=== PATIENT | female | born 1955 | race Caucasian/White ===

== ENCOUNTER 2020-04-24 11:18 | Inpatient (IN) | payer OTHER, SELFPAY ==
[~2020-04-24] VITALS: Ht 162.6 cm; Wt 85.0 kg
[~2020-04-24 11:18] MED LIST: CEPH500 PO; HYDACE5 PO
[2020-04-24 11:58] LABS: BASOPHILS ABSOLUTE AUTO 0.05 K/mm3 (0.00-0.23); BASOPHILS PERCENT AUTO 1 % (0-2); EOSINOPHILS ABSOLUTE AUTO 0.23 K/mm3 (0.00-0.68); EOSINOPHILS PERCENT AUTO 3 % (0-6); Hematocrit 38.9 % (33.0-51.0); Hemoglobin 13.4 g/dL (11.5-16.0); IMMATURE GRAN ABSOLUTE AUTO 0.01 K/mm3 (0.00-0.10); IMMATURE GRAN PERCENT AUTO 0 % (0-1); LYMPHOCYTES ABSOLUTE AUTO 2.53 K/mm3 (0.84-5.20); LYMPHOCYTES PERCENT AUTO 38 % (21-46); MONOCYTES ABSOLUTE AUTO 0.68 K/mm3 (0.16-1.47); MONOCYTES PERCENT AUTO 10 % (4-13); Mean Corpuscular HGB 31.7 pg (26.0-34.0); Mean Corpuscular HGB Conc 34.4 g/dL (31.5-36.5); Mean Corpuscular Volume 92 fL (80-100); Mean Platelet Volume 9.5 fL (9.1-12.4); NEUTROPHILS ABSOLUTE AUTO 3.21 K/mm3 (1.96-9.15); NEUTROPHILS PERCENT AUTO 48 % (41-73); Platelet Count 227 K/mm3 (150-400); RDW Coefficient Variation 12.3 % (11.7-14.2); RDW Standard Deviation 41.6 fL (35.1-46.3); Red Blood Cell Count 4.23 M/mm3 (3.80-5.20); White Blood Cell Count 6.71 K/mm3 (4.00-11.30)
[2020-04-24 12:13] LABS: Alanine Aminotransfer (ALT/SGP 50 U/L (12-78); Albumin, Blood 3.6 g/dL (3.4-5.0); Albumin/Globulin Ratio 0.8 (0.8-1.8); Alk Phos 99 U/L (50-136); Anion Gap 7 mmol/L (6-16); Aspartate Aminotrans (AST/SGOT 36 U/L (12-37); Bilirubin, Total 0.7 mg/dL (0.1-1.0); Blood Urea Nitrogen 12 mg/dL (8-24); Bun/Creatinine Ratio 16.6 (12.0-20.0); CO2, Blood 26 mmol/L (21-32); Calcium, Blood 9.5 mg/dL (8.5-10.1); Chloride, Blood 106 mmol/L (98-108); Creatinine, Blood 0.72 mg/dL (0.40-1.00); Globulin, Blood 4.6 g/dL (2.2-4.0); Glomerular Filtration Rate >60 (60-); Glucose, Blood 113 mg/dL (70-99); Potassium, Blood 4.3 mmol/L (3.5-5.5); Sodium, Blood 139 mmol/L (136-145); Total Protein, Blood 8.2 g/dL (6.4-8.2); Troponin I <0.015 ng/mL (0.000-0.040)
[2020-04-24] MEDS ORDERED: Prozac40 MG PO (13:25)
[2020-04-24] MEDS ORDERED: DYAZIDE 37.5-21 EACH PO (13:26)
[2020-04-24] MEDS ORDERED: ATOR40TA PO (13:26)
[2020-04-24] MEDS ORDERED: LEVOTHYROXINE112 MC2 PO (13:27)
[2020-04-24] MEDS ORDERED: CARVEDILOL25 M1 PO (13:27)
[2020-04-24] MEDS ORDERED: KLOR-CON 1010 ME1 PO (13:27)
[2020-04-24] MEDS ORDERED: PRILOSEC OTC20 MG PO (18:01)
--- NOTE | 2020-04-24 19:30 | NUR ---
Shift Summary Received report from Jossie NAVA-RN. Patient arrived to unit approx 1645 via w/c. A/Ox4, independent in room. Denies chest discomfort, orthopnea, numbness/tingling, nausea, diarrhea. Tele: SR 70's. Does not appear to be short of breath while up in room. Patient scheduled for stress test tomorrow. SCD's in place. No acute changes. Report handed to oncoming RN.
--- NOTE | 2020-04-24 21:48 | NUR ---
ASSUMPTION OF CARE. AOX3, INDEPENDENT, LUNGS CLEAR. HR SINUS PER TELE. DENIES ANY CARDIAC SYMPTOMS AT THIS TIME. STATES SHE FEELS FINE. SHE WAS NOT UNDERSTANDING WHAT SHE WAS TOLD ABOUT A BBB ON HER HEART OR ABNORMALITY AND WHAT THAT MEANS. SHE WAS ALSO FRIGHTEN WHEN HER PCP TOLD HER THEY COULD NOT TELL HER IF SHE IS HAVING A HEART ATTACK OR NOT. SO I EXPLAINED TO HER WHAT THINGS MEANT WHICH HELPED HER FEEL MORE COMFORTABLE AND HOPEFULLY WILL BRING DOWN HER ANXIETY AND BLOOD PRESSURE. DENIES ANY OTHER NEEDS AT THIS TIME. CALL LIGHT IS IN REACH.
--- NOTE | 2020-04-25 05:25 | NUR ---
SHIFT SUMMARY: AOX3, INDEPENDENT. TELEMETRY REPORTED SEVERAL EVENTS OF RANDOM PVC THEN A FLIP INTO ST DEPRESSION, THEN ANOTHER RANDOM PVC AND FLIP BACK TO NORMAL ST WAVE. SHE DID THIS SEVERAL TIMES EACH SHE WAS ASYMPTOMATIC. HOSPIALIST WAS CALLED AFTER FIRST EVENT AND WAS NOTIFIED. VS HAVE REMAINED STABLE THIS SHIFT. SHE SLEPT WELL OTHER THEN BEING AWAKENED. TELEMETRY IS STILL IN PLACE. GOOD APPETITE. NPO AFTER MIDNIGHT. PLAN IS STRESS TEST IN AM. CALL LIGHT REMAINS IN REACH.
--- NOTE | 2020-04-25 08:00 | NUR ---
pt sitting on the side of the bed awake a/ox3, having one day stress test, states she feels fine, no chest pain, sob, pressure, pleasant and coopertive with care, follows commands well, lungs are clear t/o, resp even and unlabored, no cough noted, hrr, tele in place running sr with bbb per tele, they state the t wave flips, qrs narrows, and bbb disapears occ, no edema noted, ppp+2, cap refill <3sec, vs stable, afebrile, iv site is clear and patent, btx4, abd flat soft nontender, voids without diff, skin c/w/d, maew, jude call light in reach.
--- NOTE | 2020-04-25 17:03 | NUR ---
NPO DR. SNYDER CONSULTED. PLANS FOR ANGIOGRAM TOMORROW AND 04/26. PATIENT TO BE NPO AFTER MIDNIGHT TONIGHT. DR. GILLIS NOTIFIED.
--- NOTE | 2020-04-25 18:32 | NUR ---
Shift Summary Assumed care approx. 1245. A/Ox4. Up in room independently. Calls appropriately for needs. Patient to be NPO after midnight for angiogram tomorrow. Will report to oncoming RN. Otherwise, no changes this shift.
--- NOTE | 2020-04-26 04:04 | NUR ---
SHIFT SUMMARY A/O, ABLE TO MAKE NEEDS KNOWN. COOPERATIVE WITH CARE. CALLS AND ANSWERS QUESTIONS APPROPRIATELY. NO C/O PAIN/DISCOMFORT. HAD SHOWER; NEW ORDERS PER ON-CALL PROVIDER, OK TO REMOVE TELE FOR SHOWER. NPO AFTER MIDNIGHT FOR ANGIO IN AM. APPEARED TO REST MUCH OF THE NIGHT. INDEPENDENT IN ROOM. NO ACUTE CHANGES NOTED OVERNIGHT. BED REMAINED IN LOWEST POSITION. CALL LIGHT AND BELONGINGS WITHIN REACH. CONTINUE WITH CURRENT PLAN OF CARE. REPORT TO ONCOMING RN.
--- NOTE | 2020-04-26 09:50 | NUR ---
PT TAKEN DOWN TO DOOR FRAME ASSEMBLER MACHINE BY DOOR FRAME ASSEMBLER MACHINE NURSE VIA WHEELCHAIR. PT IS BEING PLACED IN ROOM PCU 8 AFTER ANGIO. PT HAD A SMALL SIP OF WATER WITH HER PO CARDIAC MEDS THIS AM, OTHER THAN THIS PT HAS REMAINED NPO SINCE MIDNIGHT. CARLIN ALREADY SAW PT THIS AM BEFORE SHE LEFT FOR PROCEDURE. PT BELONGINGS WILL BE WALKED DOWN TO THE PT'S NEW ROOM.
--- NOTE | 2020-04-26 11:14 | NUR ---
RECEIVED REPORT FROM TALA BRADLEY. PT CONTINUES IN FOOD SAFETY SPECIALIST. WILL ASSUME CARE OF PT UPON ARRIVAL TO PCU UNIT.
[2020-04-26] MEDS ORDERED: Isosorbide Mono30 MG PO (16:35)
[2020-04-26] MEDS ORDERED: ASPI81CH PO (16:35)
--- NOTE | 2020-04-26 18:00 | NUR ---
PT DISCHARGED HOME IN NAD. TR BAND REMOVED, R RADIAL SITE FOUND TO BE WNL, CLEAR DRESSING APPLIED, ARMBOARD IN PLACE. DISCHARGE INSTRUCTIONS PROVIDED, PT V/U. PT AMBULATES INDEPENDENTLY FROM PCU TO HER RIDE.
== END 2020-04-26 17:49 | disposition home or self-care (01) | DRG 287 ==
LOC: ER 11:18 → ERHOLD 11:19 → MEDS 11:19 → PCU 04-26 12:08
PROVIDERS: Physician Assistant; ADMIT Internal Medicine
PROC: 4A023N7 Measurement of Cardiac Sampling and Pressure, Left Heart, Percutaneous Approach (ICD-10-PCS; principal; 2020-04-26)
PROC: B2111ZZ Fluoroscopy of Multiple Coronary Arteries using Low Osmolar Contrast (ICD-10-PCS; 2020-04-26)
PROC: 4A033BC Measurement of Arterial Pressure, Coronary, Percutaneous Approach (ICD-10-PCS; 2020-04-26)
DX: I25.118 Atherosclerotic heart disease of native coronary artery with other forms of angina pectoris (principal); Z20.822 Contact with and (suspected) exposure to COVID-19; I44.7 Left bundle-branch block, unspecified; E03.9 Hypothyroidism, unspecified; I10 Essential (primary) hypertension; I35.0 Nonrheumatic aortic (valve) stenosis; F32.9 Major depressive disorder, single episode, unspecified; R91.8 Other nonspecific abnormal finding of lung field; E66.9 Obesity, unspecified; E78.5 Hyperlipidemia, unspecified; Z88.0 Allergy status to penicillin; Z88.5 Allergy status to narcotic agent; Z87.891 Personal history of nicotine dependence; Z79.899 Other long term (current) drug therapy; Z90.89 Acquired absence of other organs; Z68.31 Body mass index [BMI] 31.0-31.9, adult
CPT/HCPCS: 36415; 71260; 76937; 78452; 80053; 83036; 83880; 84484; 85025; 85347; 93005; 93010; 93017; 93306; 93454; 93571; 93572; 99152; 99153; 99285-25; A9270; A9500; C1769; C1887; C1894; G0378; J0706; J1644; J2250; J2785; J3010; J7030; J7050; Q9967

== ENCOUNTER 2021-07-09 06:23 | Day surgery (SDC) | payer OTHER ==
[~2021-07-09] VITALS: Ht 162.6 cm; Wt 86.6 kg
[~2021-07-09 06:23] MED LIST changes: +ASPI81CH PO; +ATOR40TA PO; +CARVEDILOL25 M1 PO; +DYAZIDE 37.5-21 EACH PO; +FURO20 PO; +Isosorbide Mono30 MG PO; +KLOR-CON 1010 ME1 PO; +LEVOTHYROXINE112 MC2 PO; +PRILOSEC OTC20 MG PO; +Prinivil10 MG PO; +Prozac40 MG PO
--- NOTE | 2021-07-09 10:30 | NUR ---
PT BROUGHT BACK TO RECOVERY ROOM VIA GURNEY IN SUPINE POSITION. RIGHT GROIN SITE SOFT, REPORTS TENDERNESS TO RIGHT LEG, DORS PED AND POST TIB PULSES ON RLE ARE +2 FOR BOTH, SKIN PINK/WARM/DRY. TRANSPARENT DRESSING OVER INCISION SITE IN GROIN, ANGIOSEAL CLOSURE WAS SUCCESSFULL. SITE WITH NO BLEEDING OR OOZING NOTED. PT AOX4, DENIES CP OR SOB. CALL LIGHT IN REACH. VSS. FRIEND GEOFF CALLED TO UPDATE ABOUT DISCHARGE TIME. PT APPEARS DROWSY, EYES CLOSED, SNORING. WILL CONTINUE TO MONITOR.
[2021-07-09] MEDS ORDERED: CLOP75 PO (10:47)
--- NOTE | 2021-07-09 11:19 | NUR ---
NEW PRESCRIPTION FOR PLAVIX CALLED INTO [facility] FOR PT.
--- NOTE | 2021-07-09 12:04 | NUR ---
10 MINUTE MANUAL HOLD TO RIGHT FEMORAL ARTERIAL INCISION SITE, UPON ASSESSMENT TO GROIN PT FOUND TO HAVE APPROX 1 INCH SIZE FIRM HEMATOMA AROUND REGION OF ANGIOSEAL PLACEMENT. VERBAL ORDER FROM DR. SMITH TO GIVE FENTANYL 50 MCG IV FOR PAIN PRIOR TO MANUAL HOLD. PT TOLERATED WELL. DRESSING REMAINS CLEAN, DRY, AND INTACT. SITE IS NOW SOFT, NON TENDER. NO ACTIVE BLEEDING OR OOZING NOTED. CALL LIGHT IN REACH. WILL CONTINUE TO MONITOR.
--- NOTE | 2021-07-09 12:24 | NUR ---
RIGHT GROIN SITE REMAINS SOFT, NON TENDER WITH NO BLEEDING OR OOZING NOTED. DRESSING REMAINS INTACT. WILL CONTINUE TO MONITOR. PALPABLE DP/PT +2 PULSES TO BLE
--- NOTE | 2021-07-09 12:45 | NUR ---
HOB RAISED 45 DEGREES, RIGHT GROIN SITE REMAINS SOFT, NON TENDER, NO BLEEDING OR OOZING NOTED. PT RESTING ON GURNEY WITH EYES CLOSED, SNORING. CALL LIGHT IN REACH.
--- NOTE | 2021-07-09 13:36 | NUR ---
PT UP OUT OF BED, AMBULATED WITH STEADY GAIT TO RESTROOM. GETS DRESSED WITH NO NEEDED ASSISTANCE. UNMEASURED VOID. DISCHARGE INSTRUCTIONS REVIEWED, PROVIDED IN FOLDER. MEAL TRAY PROVIDED, TOLERATED WITH NO DIFFICULTIES. RIGHT GROIN SITE REMAINS SOFT NON TENDER WITH NO BLEEDING OR OOZING NOTED.
--- NOTE | 2021-07-09 14:29 | NUR ---
PT DISCHARGED HOME, TAKEN OUT TO PRIVATE VEHICLE VIA W/C. RIGHT GROIN SITE STABLE, SOFT NON TENDER WITH NO BLEEDING. DRESSING CLEAN, DRY, INTACT. NO ACUTE DISTRESS NOTED. PT DENIES CP. IV REMOVED FROM RAC WITH CATH INTACT, PRESSURE DRESSING APPLIED. ENCOURAGED TO FOLLOW UP WITH PROVIDER WITH QUESTION/CONCERNS.
== END 2021-07-09 23:17 | disposition home or self-care (01) ==
LOC: MHTC 06:23
DX: I25.118 Atherosclerotic heart disease of native coronary artery with other forms of angina pectoris (principal); E78.5 Hyperlipidemia, unspecified; Z88.5 Allergy status to narcotic agent; Z88.0 Allergy status to penicillin; E03.9 Hypothyroidism, unspecified; Z79.01 Long term (current) use of anticoagulants; I11.0 Hypertensive heart disease with heart failure; I50.20 Unspecified systolic (congestive) heart failure; Z87.891 Personal history of nicotine dependence
CPT/HCPCS: 76937; 85347; 92978; 93454; 93571; 99152; 99153; A9270; C1725; C1753; C1760; C1769; C1874; C1887; C1894; C9600; J1644; J2250; J3010; J7030; J7040; Q9967

== ENCOUNTER → 2023-01-16 | Outpatient (CLI) | payer OTHER ==
[~2023-01-16] MED LIST changes: +CLOP75 PO
[2023-01-16 11:19] LABS: Bun/Creatinine Ratio 17.5 (12.0-20.0); Calcium, Blood 9.6 mg/dL (8.5-10.1); Creatinine, Blood 0.69 mg/dL (0.40-1.00); Potassium, Blood 3.9 mmol/L (3.5-5.5)
== END ==
LOC: LAB 09:10 → LAB SHORT 09:10
PROVIDERS: Registered Nurse Oncology
DX: M81.0 Age-related osteoporosis without current pathological fracture (principal)
CPT/HCPCS: 80048

== ENCOUNTER 2024-03-01 04:25 | Inpatient (IN) | payer OTHER ==
[~2024-03-01] VITALS: Ht 167.6 cm; Wt 81.6 kg
[2024-03-01] VITALS (55 sets, daily range): BP systolic 93–145; BP diastolic 27–111
[~2024-03-01 04:25] MED LIST changes: -ATOR40TA PO; +ATOR80 PO; +B-1100 M1 PO; +CONSTULOSE10 GM/155 PO; +EZET10 PO; +HYDCHL12.5 PO; +IPRAT-ALBUT 0.5-3 ML INH; +LATA.005SO BOTHEYES; +MELA3 PO; +METO25; +METOPROLOL SUCC25 MG PO; +PROZAC2010 PO; +SPIR50 PO; +SYNTHROID88 MCG PO
[2024-03-01] MEDS ORDERED: NS 1,000 ML IV SCH (04:45)
[2024-03-01] MEDS ORDERED: Azithromycin 500 MG in NS 250 ML IV ONE (04:55)
[2024-03-01] MEDS ORDERED: Cefepime HCl 1,000 MG in NS 100 ML IV ONE (04:55)
[2024-03-01] MEDS ORDERED: Vancomycin HCL 1,750 MG in NS 500 ML IV ONE (05:20)
[2024-03-01 05:24] LABS: Base Excess Venous -15.7 mmol/L; Bicarbonate Venous 13.6 mmol/L (24.0-30.0)
[2024-03-01 05:25] LABS: pH Blood Venous 7.24 (7.34-7.37)
[2024-03-01] MEDS ORDERED: FLU VACC TS2024-25(6MOS UP)/PF 45 MCG/0.5 ML SYRINGE IM ONE (05:25)
[2024-03-01] MEDS ORDERED: Ondansetron HCl 2 MG / ML 2ML Vial IV PRN (05:25)
[2024-03-01 05:37] LABS: BASOPHILS ABSOLUTE AUTO 0.08 K/mm3 (0.00-0.23); BASOPHILS PERCENT AUTO 0 % (0-2); EOSINOPHILS PERCENT AUTO 0 % (0-6); Hematocrit 40.1 % (33.0-51.0); IMMATURE GRAN ABSOLUTE AUTO 0.29 K/mm3 (0.00-0.10); IMMATURE GRAN PERCENT AUTO 1 % (0-1); LYMPHOCYTES ABSOLUTE AUTO 2.69 K/mm3 (0.84-5.20); LYMPHOCYTES PERCENT AUTO 8 % (21-46); MONOCYTES PERCENT AUTO 5 % (4-13); Mean Corpuscular HGB 28.3 pg (26.0-34.0); Mean Corpuscular HGB Conc 34.9 g/dL (31.5-36.5); Mean Corpuscular Volume 81 fL (80-100); NEUTROPHILS ABSOLUTE AUTO 30.25 K/mm3 (1.96-9.15); NEUTROPHILS PERCENT AUTO 87 % (41-73); Platelet Count 197 K/mm3 (150-400); RDW Coefficient Variation 21.2 % (11.7-14.2); RDW Standard Deviation 59.3 fL (35.1-46.3); Red Blood Cell Count 4.95 M/mm3 (3.80-5.20); White Blood Cell Count 34.91 K/mm3 (4.00-11.30)
[2024-03-01] MEDS ORDERED: Albumin (Human) 25gm/100ml 100 ML IV ONE (05:50)
[2024-03-01] MEDS ORDERED: CALCIUM GLUC IN NACL, ISO-OSM 50 ML IV ONE (05:50)
[2024-03-01] MEDS ORDERED: Sodium Bicarb 8.4% Inj 100 MEQ in Sodium Chloride 0.45% 1,000 ML IV SCH (05:55)
[2024-03-01] MEDS ORDERED: Dextrose 50% 50 ML Vial IV ONE ×2 (06:00→07:05)
[2024-03-01] MEDS ORDERED: FentaNYL Citrate 50 MCG/ML 2 ML Injection IV ONE (06:00)
[2024-03-01] MEDS ORDERED: Insulin Regular 100 Unit/ML 1ML Dose IV ONE (06:00)
[2024-03-01 06:03] LABS: Magnesium, Blood 2.2 mg/dL (1.6-2.4); Thyroid Stimulating Hormone 4.26 uIU/mL (0.360-4.800)
[2024-03-01 06:28] LABS: Albumin, Blood 1.3 g/dL (3.4-5.0); Albumin/Globulin Ratio 0.2 (0.8-1.8); Bilirubin, Total 2.1 mg/dL (0.1-1.0); Bun/Creatinine Ratio 12.4 (12.0-20.0); Calcium, Blood 7.4 mg/dL (8.5-10.1); Creatinine, Blood 5.16 mg/dL (0.40-1.00); Globulin, Blood 5.9 g/dL (2.2-4.0); Phosphorus, Blood 7.7 mg/dL (2.5-4.9); Potassium, Blood 6.4 mmol/L (3.5-5.5); Total Protein, Blood 7.2 g/dL (6.4-8.2)
[2024-03-01 06:44] LABS: Source, Urine Straight Cath
[2024-03-01 06:54] LABS: International Normalized Ratio 2.52
[2024-03-01 06:56] LABS: Influenza A, PCR NEGATIVE (NEGATIVE); Influenza B, PCR NEGATIVE (NEGATIVE); SARS-Cov-2 (COVID-19) PCR, MMC NEGATIVE (NEGATIVE)
[2024-03-01] MEDS ORDERED: Albuterol 2.5 MG/3 ML VIAL INH SCH (07:00)
[2024-03-01 07:03] LABS: Prothrombin Time Results 25.2 Sec (9.7-11.5)
[2024-03-01] MEDS ORDERED: Sodium Bicarb 8.4% 1 MEQ/ML 50 ML Vial IV ONE ×2 (07:10→12:57)
[2024-03-01] MEDS ORDERED: DiphenhydrAMINE HCL 25 MG Cap PO PRN (07:15)
[2024-03-01] MEDS ORDERED: Sodium Polystyrene Sulfonate 15GM / 60ML BTL PO ONE (07:20)
[2024-03-01 07:24] LABS: Appearance, Urine Cloudy (Clear); Blood, Urine 3+ (Neg); Color, Urine Yellow (P-Yellow); Glucose Qualitative, Urine 1+ (Neg); Ketones, Urine 1+ (Neg); Leukocyte Esterase, Urine 1+ (Neg); Nitrite, Urine Pos (Neg); Protein, Urine 2+ (Neg); Specific Gravity, Urine 1.025 (1.003-1.022); Urobilinogen, Urine 2+ (Normal)
[2024-03-01] MEDS ORDERED: Insulin Regular 100 UNIT/ML 10ML Vial IV ONE (07:30)
[2024-03-01] MEDS ORDERED: CALCIUM GLUC IN NACL, ISO-OSM 100 ML IV ONE (07:35)
[2024-03-01 07:41] LABS: Bilirubin, Urine 2+ (Neg)
[2024-03-01 07:42] LABS: Squamous Epithelial Cells Many /hpf (Few)
[2024-03-01 07:43] LABS: Bacteria Many /hpf; White Blood Cells, Urine 25-50 /hpf (0-5)
[2024-03-01 07:45] LABS: Resp Syncytial Virus, PCR POSITIVE (NEGATIVE)
[2024-03-01] MEDS ORDERED: Meropenem 1,000 MG in NS 100 ML IV SCH (08:00)
[2024-03-01] MEDS ORDERED: Sodium Bicarb 8.4% Inj 150 MEQ in Dextrose 5% 1,000 ML IV SCH (08:00)
[2024-03-01] MEDS ORDERED: FentaNYL Citrate 50 MCG/ML 2 ML Injection IV PRN (08:15)
[2024-03-01 08:34] LABS: Base Excess Venous -17.4 mmol/L; Bicarbonate Venous 12.1 mmol/L (24.0-30.0); PCO2 Venous 29.7 mmHg (38-42)
[2024-03-01 08:35] LABS: pH Blood Venous 7.18 (7.34-7.37)
[2024-03-01] MEDS ORDERED: CALCIUM GLUC IN NACL, ISO-OSM 50 ML IV SCH (08:40)
[2024-03-01] MEDS ORDERED: Bumetanide 0.25 MG/ML 4ML ViaL IV SCH (09:00)
[2024-03-01] MEDS ORDERED: Midodrine 5 MG Tab PO SCH (09:00)
[2024-03-01] MEDS ORDERED: Sodium Zirconium Cyclosilicate 10 GM Packet PO SCH (09:00)
[2024-03-01] MEDS ORDERED: Octreotide Acetate 50 MCG in NS 50 ML IV SCH (09:00)
[2024-03-01] MEDS ORDERED: Lactulose 20 GM/30 ML UDC PO SCH (09:00)
[2024-03-01] MEDS ORDERED: Albumin (Human) 25gm/100ml 100 ML IV SCH (09:00)
[2024-03-01] MEDS ORDERED: Furosemide 10 MG/ML 4ML Vial IV SCH (09:00)
[2024-03-01 09:09] LABS: Calcium, Blood 7.2 mg/dL (8.5-10.1); Creatinine, Blood 5.24 mg/dL (0.40-1.00); Potassium, Blood 6.6 mmol/L (3.5-5.5)
[2024-03-01] MEDS ORDERED: NS 1,000 ML IV ONE (09:36)
[2024-03-01] MEDS ORDERED: NS 500 ML IV SCH (09:40)
[2024-03-01] MEDS ORDERED: EPINEPhrine HCl 0.1 MG/ML STE Water 10ML SYR XX ONE (12:57)
[2024-03-01] MEDS ORDERED: Magnesium Sulfate 500 MG / ML 2ML Vial XX ONE (12:57)
[2024-03-01] MEDS ORDERED: Lactulose 20 GM/30 ML UDC PT SCH (13:00)
[2024-03-01 13:04] LABS: Hematocrit 30.6 % (33.0-51.0); Hemoglobin 10.9 g/dL (11.5-16.0)
[2024-03-01] MEDS ORDERED: Calcium Chloride 10% 2,000 MG in NS 100 ML IV ONE (13:30)
[2024-03-01 13:42] LABS: Magnesium, Blood 1.9 mg/dL (1.6-2.4)
[2024-03-01 13:55] LABS: Albumin, Blood 2.2 g/dL (3.4-5.0); Albumin/Globulin Ratio 0.6 (0.8-1.8); Bun/Creatinine Ratio 13.1 (12.0-20.0); Calcium, Blood 7.2 mg/dL (8.5-10.1); Creatinine, Blood 5.1 mg/dL (0.40-1.00); Globulin, Blood 3.6 g/dL (2.2-4.0); Phosphorus, Blood 8.8 mg/dL (2.5-4.9); Potassium, Blood 5.6 mmol/L (3.5-5.5); Total Protein, Blood 5.8 g/dL (6.4-8.2)
[2024-03-01 13:56] LABS: C DIFFICILE DNA Duplicate (Negative)
[2024-03-01] MEDS ORDERED: BISA10S PR (14:40)
[2024-03-01] MEDS ORDERED: GABA100 PO (14:40)
[2024-03-01] MEDS ORDERED: TYLENOL325 M1 PO (14:41)
[2024-03-01] MEDS ORDERED: ONDA4ODT MM (14:41)
[2024-03-01] MEDS ORDERED: Vasopressin 20 UNITS in NS 100 ML IV SCH (15:30)
[2024-03-01] MEDS ORDERED: Pantoprazole Sodium 40 MG Injection IV SCH (16:30)
[2024-03-01] MEDS ORDERED: Bumetanide 0.25 MG/ML 10ML Vial IV ONE (18:00)
[2024-03-02] VITALS (97 sets, daily range): BP systolic 58–151; BP diastolic 27–94
[2024-03-02 03:36] LABS: Base Excess Venous -16.2 mmol/L; Bicarbonate Venous 14.3 mmol/L (24.0-30.0); PCO2 Venous 17.7 mmHg (38-42); pH Blood Venous 7.34 (7.34-7.37)
[2024-03-02 03:55] LABS: BASOPHILS ABSOLUTE AUTO 0.15 K/mm3 (0.00-0.23); BASOPHILS PERCENT AUTO 0 % (0-2); EOSINOPHILS PERCENT AUTO 0 % (0-6); Hematocrit 34.2 % (33.0-51.0); Hemoglobin 11.9 g/dL (11.5-16.0); IMMATURE GRAN ABSOLUTE AUTO 1.05 K/mm3 (0.00-0.10); IMMATURE GRAN PERCENT AUTO 2 % (0-1); LYMPHOCYTES ABSOLUTE AUTO 3.04 K/mm3 (0.84-5.20); LYMPHOCYTES PERCENT AUTO 6 % (21-46); MONOCYTES ABSOLUTE AUTO 3.69 K/mm3 (0.16-1.47); MONOCYTES PERCENT AUTO 8 % (4-13); Mean Corpuscular HGB 28.1 pg (26.0-34.0); Mean Corpuscular HGB Conc 34.8 g/dL (31.5-36.5); Mean Corpuscular Volume 81 fL (80-100); NEUTROPHILS PERCENT AUTO 84 % (41-73); NRBC ABSOLUTE 0.02 K/mm3 (0.00-0.02); Platelet Count 120 K/mm3 (150-400); RDW Coefficient Variation 20.8 % (11.7-14.2); RDW Standard Deviation 58.4 fL (35.1-46.3); Red Blood Cell Count 4.23 M/mm3 (3.80-5.20); White Blood Cell Count 49.23 K/mm3 (4.00-11.30)
[2024-03-02 04:15] LABS: Alanine Aminotransfer (ALT/SGP 107 U/L (12-78); Albumin/Globulin Ratio 0.5 (0.8-1.8); Alk Phos 303 U/L (50-136); Anion Gap 26 mmol/L (3-11); Aspartate Aminotrans (AST/SGOT 383 U/L (12-37); Bilirubin, Total 2.1 mg/dL (0.1-1.0); Blood Urea Nitrogen 70 mg/dL (8-24); Bun/Creatinine Ratio 12.8 (12.0-20.0); CO2, Blood 13 mmol/L (21-32); Calcium, Blood 6.9 mg/dL (8.5-10.1); Chloride, Blood 101 mmol/L (98-108); Creatinine, Blood 5.47 mg/dL (0.40-1.00); Globulin, Blood 3.7 g/dL (2.2-4.0); Glomerular Filtration Rate 8 (60-); Glucose, Blood 235 mg/dL (70-99); Magnesium, Blood 1.9 mg/dL (1.6-2.4); Phosphorus, Blood 7.8 mg/dL (2.5-4.9); Potassium, Blood 5.5 mmol/L (3.5-5.5); Sodium, Blood 134 mmol/L (136-145); Total Protein, Blood 5.7 g/dL (6.4-8.2); Vancomycin, Random 24.7 ug/mL
[2024-03-02] MEDS ORDERED: Sodium Bicarb 8.4% 1 MEQ/ML 50 ML Vial IV ONE ×2 (04:25→20:50)
[2024-03-02] MEDS ORDERED: Sodium Bicarb 8.4% Inj 150 MEQ in Dextrose 5% 1,000 ML IV SCH ×2 (04:25→08:05)
[2024-03-02 06:38] LABS: Creatinine, Blood 5.4 mg/dL (0.40-1.00); Potassium, Blood 5.4 mmol/L (3.5-5.5)
[2024-03-02] MEDS ORDERED: propofoL 100 ML IV ONE (07:13)
[2024-03-02] MEDS ORDERED: propofoL 100 ML IV SCH (07:15)
[2024-03-02] MEDS ORDERED: Anticoagulant Sod Citrate Soln 3 ML SYR INJ PRN (08:10)
[2024-03-02] MEDS ORDERED: Albumin (Human) 25gm/100ml 100 ML IV SCH (08:15)
[2024-03-02] MEDS ORDERED: Hydrogen Peroxide 1.5 % Solution MT SCH (12:00)
[2024-03-02 14:24] LABS: Hemoglobin 9.1 g/dL (11.5-16.0); Mean Corpuscular HGB 28.9 pg (26.0-34.0); Mean Corpuscular Volume 83 fL (80-100); NRBC ABSOLUTE 0.03 K/mm3 (0.00-0.02); NRBC Auto 0.1 /100 WBC (0.0-0.2); Platelet Count 76 K/mm3 (150-400); RDW Coefficient Variation 21.2 % (11.7-14.2); RDW Standard Deviation 61.6 fL (35.1-46.3); Red Blood Cell Count 3.15 M/mm3 (3.80-5.20)
[2024-03-02 14:27] LABS: Albumin, Blood 2.9 g/dL (3.4-5.0); Anion Gap 24 mmol/L (3-11); Blood Urea Nitrogen 41 mg/dL (8-24); Bun/Creatinine Ratio 11.6 (12.0-20.0); CO2, Blood 20 mmol/L (21-32); Calcium, Blood 6.9 mg/dL (8.5-10.1); Chloride, Blood 100 mmol/L (98-108); Creatinine, Blood 3.53 mg/dL (0.40-1.00); Glomerular Filtration Rate 14 (60-); Glucose, Blood 211 mg/dL (70-99); Magnesium, Blood 2.2 mg/dL (1.6-2.4); Phosphorus, Blood 6.8 mg/dL (2.5-4.9); Potassium, Blood 4.3 mmol/L (3.5-5.5); Sodium, Blood 140 mmol/L (136-145)
[2024-03-02 14:32] LABS: PCO2 Arterial 42.2 mmHg (35-45); pH Blood Arterial 7.28 (7.35-7.45)
[2024-03-02] MEDS ORDERED: CALCIUM GLUC IN NACL, ISO-OSM 50 ML IV ONE (14:50)
[2024-03-02 14:52] LABS: BAND PERCENT MAN 46 % (0-8); BASOPHILS PERCENT MAN 0 % (0-2); EOSINOPHILS PERCENT MAN 0 % (0-6); LYMPHOCYTES ABSOLUTE MAN 2.73 K/mm3 (0.84-5.20); LYMPHOCYTES PERCENT MAN 7 % (21-46); METAMYELOCYTE ABSOLUTE MAN 0.78 K/mm3 (0.00-0.00); METAMYELOCYTE PERCENT MAN 2 % (0-0); MONOCYTES ABSOLUTE MAN 1.56 K/mm3 (0.16-1.47); MONOCYTES PERCENT MAN 4 % (4-13); NEUTROPHILS ABSOLUTE MAN 33.93 K/mm3 (1.96-9.15); SEG NEUTROPHILS PERCENT MAN 41 % (41-73); TOTAL CELLS COUNTED 100
[2024-03-02 15:23] LABS: Acinetobacter baumannii DNA Not Detected copy/mL (NOT DETECT); Adenovirus DNA Not Detected (NOT DETECT); Chlamydia pneumonia Not Detected (NOT DETECT); Enterobacter cloacae DNA Not Detected copy/mL (NOT DETECT); Escherichia coli DNA Not Detected copy/mL (NOT DETECT); Haemophilus influenzae DNA Not Detected copy/mL (NOT DETECT); Human Coronavirus RNA Not Detected (NOT DETECT); Klebsiella aerogenes DNA Not Detected copy/mL (NOT DETECT); Klebsiella oxytoca DNA Not Detected copy/mL (NOT DETECT); Klebsiella pneumoniae DNA Not Detected copy/mL (NOT DETECT); Legionella pneumophila Not Detected (NOT DETECT); Moraxella catarrhalis DNA Not Detected copy/mL (NOT DETECT); Mycoplasma pneumoniae Not Detected (NOT DETECT); Proteus sp DNA Not Detected copy/mL (NOT DETECT); Pseudomonas aeruginosa DNA Not Detected copy/mL (NOT DETECT); Serratia marcescens DNA Not Detected copy/mL (NOT DETECT); Staphylococcus aureus DNA Not Detected copy/mL (NOT DETECT); Streptococcus agalactiae DNA Not Detected copy/mL (NOT DETECT); Streptococcus pneumoniae DNA Not Detected copy/mL (NOT DETECT); Streptococcus pyogenes DNA Not Detected copy/mL (NOT DETECT)
[2024-03-02 15:24] LABS: Human Metapneumovirus RNA Not Detected (NOT DETECT); Influenza virus A RNA Detected (NOT DETECT); Influenza virus B RNA Not Detected (NOT DETECT); Parainfluenza virus RNA Not Detected (NOT DETECT); Respiratory syncytial Vir RNA Detected (NOT DETECT); Rhinovirus+Enterovirus RNA Not Detected (NOT DETECT)
[2024-03-02 18:24] LABS: Hemoglobin 8.1 g/dL (11.5-16.0)
[2024-03-02 18:42] LABS: Albumin, Blood 2.8 g/dL (3.4-5.0); Anion Gap 29 mmol/L (3-11); Blood Urea Nitrogen 43 mg/dL (8-24); Bun/Creatinine Ratio 11.5 (12.0-20.0); CO2, Blood 17 mmol/L (21-32); Calcium, Blood 6.5 mg/dL (8.5-10.1); Chloride, Blood 97 mmol/L (98-108); Creatinine, Blood 3.75 mg/dL (0.40-1.00); Glomerular Filtration Rate 13 (60-); Glucose, Blood 209 mg/dL (70-99); Phosphorus, Blood 7.9 mg/dL (2.5-4.9); Potassium, Blood 4.7 mmol/L (3.5-5.5); Sodium, Blood 138 mmol/L (136-145)
[2024-03-02 19:47] LABS: Base Excess Venous -12.1 mmol/L; Bicarbonate Venous 15.4 mmol/L (24.0-30.0); PCO2 Venous 41.6 mmHg (38-42); pH Blood Venous 7.19 (7.34-7.37)
[2024-03-02] MEDS ORDERED: Cetylpyridinium Chloride 1 EA MISC MT SCH (20:00)
[2024-03-03] VITALS (44 sets, daily range): BP systolic 60–119; BP diastolic 34–81
[2024-03-03 00:31] LABS: Base Excess Venous -11.5 mmol/L; Bicarbonate Venous 15.8 mmol/L (24.0-30.0); PCO2 Venous 40.6 mmHg (38-42); pH Blood Venous 7.21 (7.34-7.37)
[2024-03-03] MEDS ORDERED: Sodium Bicarb 8.4% 1 MEQ/ML 50 ML Vial IV ONE (00:40)
[2024-03-03 03:55] LABS: Base Excess Venous -12.2 mmol/L; Bicarbonate Venous 15.3 mmol/L (24.0-30.0); Hematocrit 22.1 % (33.0-51.0); Hemoglobin 7.5 g/dL (11.5-16.0); Mean Corpuscular HGB 29.6 pg (26.0-34.0); Mean Corpuscular HGB Conc 33.9 g/dL (31.5-36.5); Mean Corpuscular Volume 87 fL (80-100); NRBC ABSOLUTE 0.09 K/mm3 (0.00-0.02); NRBC Auto 0.2 /100 WBC (0.0-0.2); PCO2 Venous 40.8 mmHg (38-42); Platelet Count 55 K/mm3 (150-400); RDW Standard Deviation 68.1 fL (35.1-46.3); Red Blood Cell Count 2.53 M/mm3 (3.80-5.20); White Blood Cell Count 40.92 K/mm3 (4.00-11.30)
[2024-03-03 04:22] LABS: Magnesium, Blood 2.2 mg/dL (1.6-2.4)
[2024-03-03 04:46] LABS: Anion Gap 33 mmol/L (3-11); Blood Urea Nitrogen 45 mg/dL (8-24); Bun/Creatinine Ratio 11.1 (12.0-20.0); CO2, Blood 17 mmol/L (21-32); Calcium, Blood 6.1 mg/dL (8.5-10.1); Chloride, Blood 94 mmol/L (98-108); Creatinine, Blood 4.07 mg/dL (0.40-1.00); Glomerular Filtration Rate 12 (60-); Glucose, Blood 225 mg/dL (70-99); Phosphorus, Blood 8.3 mg/dL (2.5-4.9); Potassium, Blood 5.2 mmol/L (3.5-5.5); Sodium, Blood 139 mmol/L (136-145); Vancomycin, Random 15.7 ug/mL
[2024-03-03] MEDS ORDERED: CALCIUM GLUC IN NACL, ISO-OSM 100 ML IV ONE (05:10)
[2024-03-03 05:12] LABS: BAND PERCENT MAN 16 % (0-8); BASOPHILS PERCENT MAN 0 % (0-2); EOSINOPHILS PERCENT MAN 0 % (0-6); LYMPHOCYTES ABSOLUTE MAN 6.95 K/mm3 (0.84-5.20); LYMPHOCYTES PERCENT MAN 17 % (21-46); MONOCYTES ABSOLUTE MAN 2.86 K/mm3 (0.16-1.47); MONOCYTES PERCENT MAN 7 % (4-13); NEUTROPHILS ABSOLUTE MAN 31.09 K/mm3 (1.96-9.15); SEG NEUTROPHILS PERCENT MAN 60 % (41-73); TOTAL CELLS COUNTED 100
[2024-03-03] MEDS ORDERED: Octreotide Acetate 500 MCG in NS 250 ML IV SCH (08:10)
[2024-03-03] MEDS ORDERED: Levothyroxine Sodium 100 MCG Vial IV SCH (09:00)
[2024-03-03] MEDS ORDERED: Thiamine HCl 100 MG Tab PT SCH (09:00)
[2024-03-03] MEDS ORDERED: Vancomycin HCL 1,000 MG in NS 250 ML IV SCH (09:00)
[2024-03-03] MEDS ORDERED: NS 500 ML IV ONE ×2 (10:14→10:20)
[2024-03-03 10:35] LABS: PCO2 Arterial 38.9 mmHg (35-45); PO2 Arterial 56.2 mmHg (80-100); pH Blood Arterial 7.06 (7.35-7.45)
[2024-03-03] MEDS ORDERED: Calcium Chloride 10% 2,000 MG in NS 100 ML IV ONE (10:45)
[2024-03-03] MEDS ORDERED: Atropine Sulfate 1% Opth Soln 2ML BTL SL PRN (12:25)
[2024-03-03] MEDS ORDERED: Scopolamine Hydrobromide Patch TOP PRN (12:25)
[2024-03-03] MEDS ORDERED: LORazepam 2 MG/ML 1ML Injection IV PRN (12:30)
[2024-03-03] MEDS ORDERED: Morphine Sulfate 20 MG/1ML 1 ML Oral Syringe SL PRN (12:30)
[2024-03-03] MEDS ORDERED: Acetaminophen 160MG / 5ML 10.15 UDC PO PRN (12:30)
[2024-03-03] MEDS ORDERED: Acetaminophen 650 MG Supp PR PRN (12:30)
[2024-03-03] MEDS ORDERED: Morphine Sulfate 10 MG/ML 1MLSYR IV PRN (12:35)
[2024-03-03] MEDS ORDERED: Ondansetron HCl 2 MG / ML 2ML Vial IV PRN (12:35)
[2024-03-03] MEDS ORDERED: Acetaminophen 325 MG TABLET PO PRN (12:35)
[2024-03-03] MEDS ORDERED: Darbepoetin Alfa in Polysorbat 25 MCG/0.42 ML Syringe SC SCH (16:00)
[2024-03-04 16:15] LABS: HEPATITIS A ANTIBODY, IGM Negative (Negative); HEPATITIS B CORE ANTIBODY, IGM Negative (Negative); HEPATITIS B SURFACE ANTIGEN Negative (Negative); HEPATITIS C AB CIA INTERP Negative (Negative); HEPATITIS C ANTIBODY CIA INDEX 0.25 IV
[2024-03-04 17:13] LABS: HEPATITIS B SURFACE ANTIBODY <3.10 IU/L
== END 2024-03-03 15:00 | DRG 871 ==
LOC: ER 04:25 → ICUE 05:22 → ERHOLD 05:22 → ICUE 09:29
PROVIDERS: Emergency Medicine; Internal Medicine Critical Care Medicine; Internal Medicine Nephrology; ADMIT Internal Medicine
PROC: 3E03329 Introduction of Other Anti-infective into Peripheral Vein, Percutaneous Approach (ICD-10-PCS; principal; 2024-03-01)
PROC: 3E033XZ Introduction of Vasopressor into Peripheral Vein, Percutaneous Approach (ICD-10-PCS; 2024-03-01)
PROC: 02HV33Z Insertion of Infusion Device into Superior Vena Cava, Percutaneous Approach (ICD-10-PCS; 2024-03-01)
PROC: 4A02X4A Measurement of Cardiac Electrical Activity, Guidance, External Approach (ICD-10-PCS; 2024-03-01)
PROC: 02HV33Z Insertion of Infusion Device into Superior Vena Cava, Percutaneous Approach (ICD-10-PCS; 2024-03-02)
PROC: 5A12012 Performance of Cardiac Output, Single, Manual (ICD-10-PCS; 2024-03-02)
PROC: 0BH18EZ Insertion of Endotracheal Airway into Trachea, Via Natural or Artificial Opening Endoscopic (ICD-10-PCS; 2024-03-02)
PROC: 5A1945Z Respiratory Ventilation, 24-96 Consecutive Hours (ICD-10-PCS; 2024-03-02)
PROC: 5A1D70Z Performance of Urinary Filtration, Intermittent, Less than 6 Hours Per Day (ICD-10-PCS; 2024-03-02)
DX: A41.9 Sepsis, unspecified organism (principal); J10.00 Influenza due to other identified influenza virus with unspecified type of pneumonia; J96.01 Acute respiratory failure with hypoxia; K76.7 Hepatorenal syndrome; R65.21 Severe sepsis with septic shock; N17.9 Acute kidney failure, unspecified; I50.22 Chronic systolic (congestive) heart failure; E87.20 Acidosis, unspecified; I13.0 Hypertensive heart and chronic kidney disease with heart failure and stage 1 through stage 4 chronic kidney disease, or unspecified chronic kidney disease; E78.5 Hyperlipidemia, unspecified; Z51.5 Encounter for palliative care; K70.30 Alcoholic cirrhosis of liver without ascites; Z66 Do not resuscitate; E87.5 Hyperkalemia; E03.9 Hypothyroidism, unspecified; E83.51 Hypocalcemia; E87.70 Fluid overload, unspecified; N18.9 Chronic kidney disease, unspecified; E83.39 Other disorders of phosphorus metabolism; Z79.899 Other long term (current) drug therapy
CPT/HCPCS: 0241U; 0528U; 31500; 36415; 36556; 36569; 36600; 51702; 71045; 80048; 80053; 80069; 80074; 80202; 81001; 82010; 82140; 82330; 82374; 82533; 82565; 82803; 82947; 83605; 83690; 83735; 83880; 84100; 84132; 84145; 84300; 84443; 84484; 85014; 85018; 85025; 85610; 85730; 86850; 86900; 86901; 87040; 87070; 87086; 87205; 93005; 93010; 93306; 94002; 94003; 94640; 94664; 94762; 96374; 99285-25; A9270; C1751; C1752; J0171; J0612; J1815; J2185; J2354; J2470; J2704; J3010; J3370; J3475; J7030; J7040; J7050; J7060; J7070; J7799; P9047